=== PATIENT | male | born 1970 | race Caucasian/White ===

== ENCOUNTER 2018-01-14 07:58 | Emergency (ER) | payer OTHER ==
[~2018-01-14] VITALS: Ht 188 cm; Wt 108.9 kg
[2018-01-14] MEDS ORDERED: CLON0.1T PO (08:13)
[2018-01-14] MEDS ORDERED: OMEP40CA37 PO (08:13)
--- NOTE | 2018-01-14 08:33 | NUR ---
2 cartons of milk and 3 packets of crackers were given per patient's request.
[2018-01-14] MEDS ORDERED: LORAZEPAM 1 MG TABLET ONE (08:38)
[2018-01-14] MEDS ORDERED: LORAZEPAM 0.5 MG TABLET PO ONE (08:45)
[2018-01-14 08:55] LABS: POTASSIUM 3.4 mmol/L (3.5-5.1)
[2018-01-14 08:58] LABS: BASOPHILS % (AUTO) 0.6 % (0.0-2.0); EOSINOPHILS # (AUTO) 0.1 K/uL (0.0-0.7); EOSINOPHILS % (AUTO) 1.2 % (0.0-7.0); HEMATOCRIT 41.6 % (36.7-47.1); HEMOGLOBIN 14.8 g/dL (12.5-16.3); LYMPHOCYTES % (AUTO) 13.7 % (20.5-51.5); MEAN CORPUSCULAR HGB CONC 36 g/dL (32.5-36.3); MEAN CORPUSCULAR VOLUME 81.5 fL (73.0-96.2); MONOCYTES # (AUTO) 0.3 K/uL (2.0-10.0); MONOCYTES % (AUTO) 4.4 % (0.0-11.0); NEUTROPHILS # (AUTO) 5.7 K/uL (1.8-8.9); NEUTROPHILS % (AUTO) 80.1 % (38.5-71.5); PLATELET COUNT (AUTO) 293 K/uL (152-348); RED BLOOD CELL COUNT(AUTO) 5.11 MIL/uL (4.06-5.63); WHITE BLOOD COUNT (AUTO) 7.2 K/uL (3.6-10.2)
--- NOTE | 2018-01-14 09:08 | NUR ---
Patient discharged to home in stable conditon & brisk steady gait. Written and verbal after care instructions given to patient. Patient verbalizes understanding of instructions.
== END 2018-01-14 09:11 | disposition home or self-care (01) ==
LOC: ER 07:58
DX: F41.9 Anxiety disorder, unspecified (principal); I10 Essential (primary) hypertension; R00.2 Palpitations; F32.9 Major depressive disorder, single episode, unspecified; F17.200 Nicotine dependence, unspecified, uncomplicated; K21.9 Gastro-esophageal reflux disease without esophagitis
CPT/HCPCS: 36415; 85025; 93005; A4663

== ENCOUNTER 2018-01-22 12:42 | Emergency (ER) | payer OTHER ==
[~2018-01-22] VITALS: Ht 188 cm; Wt 108.9 kg
[~2018-01-22 12:42] MED LIST: CLON0.1T PO; OMEP40CA37 PO
[2018-01-22] MEDS ORDERED: CLONIDINE HCL 0.1 MG TABLET PO ONE (13:00)
[2018-01-22] MEDS ORDERED: CLONIDINE HCL 0.1 MG TABLET ONE (13:00)
[2018-01-22 13:17] VITALS: BP 155/91
--- NOTE | 2018-01-22 13:18 | NUR ---
MSE COMPLETED, PT D/C'D HOME ACI/RX X2 GIVEN. PT AMBULATED W/O DIFF/TOOK ALL BELONGINGS.
== END 2018-01-22 13:19 | disposition home or self-care (01) ==
LOC: ER 12:44
DX: Z76.0 Encounter for issue of repeat prescription (principal); I10 Essential (primary) hypertension; F17.210 Nicotine dependence, cigarettes, uncomplicated; K21.9 Gastro-esophageal reflux disease without esophagitis; Z79.899 Other long term (current) drug therapy
CPT/HCPCS: A4663

== ENCOUNTER 2018-02-06 18:46 | Emergency (ER) | payer OTHER ==
[~2018-02-06] VITALS: Ht 188 cm; Wt 108.9 kg
--- NOTE | 2018-02-06 19:10 | NUR ---
Dr. Dodd at bedside for MSE.
[2018-02-06] MEDS: LORAZEPAM 0.5 MG TABLET PO ONE (19:18)
[2018-02-06] MEDS ORDERED: LORAZEPAM 1 MG TABLET ONE (19:19)
--- NOTE | 2018-02-06 19:23 | NUR ---
Patient discharged to home in stable conditon. Written and verbal after care instructions given. Patient verbalizes understanding of instructions. Patient ambulated out of ER with steady gait, no acute signs of distress, VSS, all belongings taken.
[2018-02-06 19:25] VITALS: BP 150/98
== END 2018-02-06 19:25 | disposition home or self-care (01) ==
LOC: ER 18:47
DX: Z76.0 Encounter for issue of repeat prescription (principal); F41.9 Anxiety disorder, unspecified; I10 Essential (primary) hypertension; K21.9 Gastro-esophageal reflux disease without esophagitis; F32.9 Major depressive disorder, single episode, unspecified; F17.210 Nicotine dependence, cigarettes, uncomplicated
CPT/HCPCS: A4663

== ENCOUNTER 2018-03-15 11:50 | Emergency (ER) | payer OTHER ==
[~2018-03-15] VITALS: Ht 188 cm; Wt 108.9 kg
--- NOTE | 2018-03-15 12:12 | NUR ---
pt was evaluated by dr Dodd. pt was d/c to home. d/c instructions given to the pt.
[2018-03-15 12:14] VITALS: BP 146/88
== END 2018-03-15 12:15 | disposition home or self-care (01) ==
LOC: ER 11:56
DX: Z76.0 Encounter for issue of repeat prescription (principal); I10 Essential (primary) hypertension; K21.9 Gastro-esophageal reflux disease without esophagitis; F17.210 Nicotine dependence, cigarettes, uncomplicated; Z79.899 Other long term (current) drug therapy
CPT/HCPCS: 99283; A4663

== ENCOUNTER 2018-04-08 12:48 | Emergency (ER) | payer OTHER ==
[~2018-04-08] VITALS: Ht 188 cm; Wt 108.9 kg
--- NOTE | 2018-04-08 13:05 | NUR ---
PT WAS EVALUATED BY DR KEYS. PT WAS D/C TO HOME. D/C INSTRUCTIONS GIVEN TO THE PT.
[2018-04-08 13:10] VITALS: BP 148/89
== END 2018-04-08 13:11 | disposition home or self-care (01) ==
LOC: ER 12:48
DX: Z76.0 Encounter for issue of repeat prescription (principal); I10 Essential (primary) hypertension; F17.200 Nicotine dependence, unspecified, uncomplicated; K21.9 Gastro-esophageal reflux disease without esophagitis
CPT/HCPCS: A4663

== ENCOUNTER 2018-04-21 14:12 | Emergency (ER) | payer OTHER ==
[~2018-04-21] VITALS: Ht 188 cm; Wt 108.9 kg
--- NOTE | 2018-04-21 14:34 | NUR ---
Patient discharged to home in stable conditon. Written and verbal after care instructions given. Patient verbalizes understanding of instructions.
== END 2018-04-21 14:35 | disposition home or self-care (01) ==
LOC: ER 14:15
DX: Z76.0 Encounter for issue of repeat prescription (principal); I10 Essential (primary) hypertension; K21.9 Gastro-esophageal reflux disease without esophagitis; F17.210 Nicotine dependence, cigarettes, uncomplicated
CPT/HCPCS: A4663

== ENCOUNTER 2018-05-15 09:44 | Emergency (ER) | payer OTHER ==
[~2018-05-15] VITALS: Ht 188 cm; Wt 113.4 kg
--- NOTE | 2018-05-15 10:06 | NUR ---
PATIENT WAS SEEN BY . DC, RX AND FOLLOW UP INSTRUCTIONS GIVEN AND EXPLAINED TO PATIENT WHO STATES HE UNDERSTANDS ALL INSTRUCTIONS.
== END 2018-05-15 10:08 | disposition home or self-care (01) ==
LOC: ER 09:44
DX: I10 Essential (primary) hypertension (principal); Z76.0 Encounter for issue of repeat prescription; K21.9 Gastro-esophageal reflux disease without esophagitis; F17.200 Nicotine dependence, unspecified, uncomplicated
CPT/HCPCS: 99283; A4663

== ENCOUNTER 2018-06-07 11:36 | Emergency (ER) | payer OTHER ==
[~2018-06-07] VITALS: Ht 188 cm; Wt 108.9 kg
== END 2018-06-07 13:00 | disposition home or self-care (01) ==
LOC: ER 11:38
DX: I10 Essential (primary) hypertension (principal); Z76.0 Encounter for issue of repeat prescription; K21.9 Gastro-esophageal reflux disease without esophagitis; F17.200 Nicotine dependence, unspecified, uncomplicated
CPT/HCPCS: A4663

== ENCOUNTER 2018-07-06 09:31 | Emergency (ER) | payer OTHER ==
[~2018-07-06] VITALS: Ht 188 cm; Wt 108.9 kg
--- NOTE | 2018-07-06 10:06 | NUR ---
pt ambulatory with a steady gait. Patient discharged to home in stable conditon. Written and verbal after care instructions given. Patient verbalizes understanding of instructions.RX X1 GIVEN
[2018-07-06 10:07] VITALS: BP 138/81
== END 2018-07-06 10:08 | disposition home or self-care (01) ==
LOC: ER 09:31
DX: I10 Essential (primary) hypertension (principal); Z76.0 Encounter for issue of repeat prescription; K21.9 Gastro-esophageal reflux disease without esophagitis; F17.200 Nicotine dependence, unspecified, uncomplicated
CPT/HCPCS: A4663

== ENCOUNTER 2018-08-21 10:50 | Emergency (ER) | END 2018-08-21 11:12 | disposition home or self-care (01) | DX: I10 Essential (primary) hypertension (principal); Z76.0 Encounter for issue of repeat prescription; F17.200 Nicotine dependence, unspecified, uncomplicated; K21.9 Gastro-esophageal reflux disease without esophagitis; Z79.899 Other long term (current) drug therapy ==

== ENCOUNTER 2018-09-20 15:36 | Emergency (ER) | payer OTHER ==
[~2018-09-20] VITALS: Ht 188 cm; Wt 108.9 kg
--- NOTE | 2018-09-20 17:25 | NUR ---
Patient discharged to home in stable conditon. Written and verbal after care instructions given. Patient verbalizes understanding of instructions.
== END 2018-09-20 17:25 | disposition home or self-care (01) ==
LOC: ER 15:38
DX: I10 Essential (primary) hypertension (principal); Z76.0 Encounter for issue of repeat prescription; F17.200 Nicotine dependence, unspecified, uncomplicated; K21.9 Gastro-esophageal reflux disease without esophagitis; Z79.899 Other long term (current) drug therapy
CPT/HCPCS: A4663